=== PATIENT | female | born 1985 | race African-American/Black ===

== ENCOUNTER 2022-07-03 14:19 | Inpatient (IN) | payer BC, OTHER ==
[~2022-07-03 14:19] MED LIST: Bupivacaine 0.25% HCL 30 ML VIAL ONE
[2022-07-03 15:06] VITALS: BMI 45.4
[2022-07-03] MEDS ORDERED: Acetaminophen 500 MG TAB PO PRN (17:15)
[2022-07-03] MEDS ORDERED: NS w/ Oxytocin 30 units 500 ML IV SCH ×2 (17:15→23:59)
[2022-07-03] MEDS ORDERED: Tranexamic Acid 1,000 MG in Sodium Chloride 0.9% 250 ML 250 ML IVPB PRN (17:15)
[2022-07-03] MEDS ORDERED: Ondansetron PF 4 MG/2 ML Vial IVP PRN ×3 (17:15→23:19)
[2022-07-03] MEDS ORDERED: Docusate 100 MG CAP PO PRN (17:15)
[2022-07-03] MEDS ORDERED: Lactated Ringer's 1,000 ML IV SCH (17:15)
[2022-07-03] MEDS ORDERED: Butorphanol Tartrate 1 MG/ML VIAL SLOW IVP PRN (17:15)
[2022-07-03] MEDS ORDERED: Methylergonovine 0.2 MG/ML VIAL IM PRN (17:15)
[2022-07-03] MEDS ORDERED: Carboprost 250 MCG/ML AMP IM PRN (17:15)
[2022-07-03] MEDS ORDERED: hydrALAZINE 20 MG/ML VIAL SLOW IVP PRN ×2 (17:15→23:19)
[2022-07-03] MEDS ORDERED: Diphenoxylate HCl/Atropine Tablet PO PRN (17:15)
[2022-07-03] MEDS ORDERED: Promethazine HCl 25 MG/ML VIAL IM PRN ×2 (17:15→19:47)
[2022-07-03] MEDS ORDERED: Lidocaine 1% (PF) 30 ML VIAL SC PRN (17:20)
[2022-07-03] MEDS ORDERED: Penicillin G Potassium 5 MILL.UNITS VIAL ONE (17:25)
[2022-07-03] MEDS ORDERED: Penicillin G Potassium 5 MILL.UNITS in Sodium Chloride 0.9% 100 ML IVPB SCH (17:30)
[2022-07-03] MEDS ORDERED: Ondansetron PF 4 MG/2 ML Vial ONE (17:57)
[2022-07-03] MEDS ORDERED: Butorphanol Tartrate 1 MG/ML VIAL ONE (17:57)
[2022-07-03] MEDS ORDERED: Penicillin G 2.5 MILL.units 2.5 MILL.UNITS in Premix Bag 1 BAG IVPB SCH (18:00)
[2022-07-03 18:56] LABS: Hemoglobin 10.5 g/dL (12.0-15.5); Mean Corpuscular HGB CONC 31.8 g/dL (32.0-36.0); Mean Corpuscular Hemoglobin 28.2 pg (27.0-33.0); Mean Corpuscular Volume 88.7 fl (81.6-98.3); Mean Platelet Volume 9.4 fl (7.4-10.4); Platelet Count 311 10x3/uL (150-450); RBC Distribution Width 16.4 % (11.5-14.5); Red Blood Cell (RBC) Count 3.72 10x6/uL (3.90-5.03); White Blood Cell (WBC) Count 16.7 10x3/uL (3.5-10.5)
[2022-07-03] MEDS ORDERED: Fentanyl 2 mcg/Bup 0.1% Cadd 100 ML ONE (18:59)
[2022-07-03 19:25] LABS: HBSAg Index 0.25 S/CO (0-0.99); Hep B Surf Ag Non-Reactive S/CO (NonReactive)
[2022-07-03 19:26] LABS: Syphilis Antibody Nonreactive (Nonreactive); Syphilis Antibody Index 0.11 S/CO (<1.00 Non-Reactive)
[2022-07-03] MEDS ORDERED: Moisturizing Cream (Eucerin) 113 GM JAR TOP PRN (19:47)
[2022-07-03] MEDS ORDERED: Lactated Ringer's 500 ML IV PRN (19:47)
[2022-07-03] MEDS ORDERED: Naloxone HCl 0.4 mg/ml Vial IVP PRN ×2 (19:47)
[2022-07-03] MEDS ORDERED: diphenhydrAMINE 50 MG/ML VIAL IVP PRN (19:47)
[2022-07-03] MEDS ORDERED: ePHEDrine Sulfate 50 MG/10 ML VIAL SLOW IVP PRN (19:47)
[2022-07-03] MEDS ORDERED: Acetaminophen 325 MG TAB PO PRN (19:47)
[2022-07-03] MEDS ORDERED: Fentanyl 2 mcg/Bupivacaine 0.1% Cassette 100 ML EPIDURAL SCH (20:00)
[2022-07-03] MEDS ORDERED: Communication Order-Pharmacy FS SCH (20:00)
[2022-07-03] MEDS ORDERED: Preparation H Ointment 28 GM TUBE PR PRN (23:19)
[2022-07-03] MEDS ORDERED: Boostrix 0.5 ML (Tdap) VIAL (>/=7 yrs of age) IM ONE (23:19)
[2022-07-03] MEDS ORDERED: Milk Of Magnesia 30 ML UDCUP PO PRN (23:19)
[2022-07-03] MEDS ORDERED: Misoprostol 200 MCG TAB VAG PRN (23:19)
[2022-07-03] MEDS ORDERED: HYDROcodone/Acetaminophen 5/325 mg Tablet PO PRN (23:19)
[2022-07-03] MEDS ORDERED: diphenhydrAMINE 25 MG CAP PO PRN (23:19)
[2022-07-03] MEDS ORDERED: Benzocaine-Menthol 82.5 ML CAN TOP PRN (23:19)
[2022-07-03] MEDS ORDERED: Zolpidem Tartrate 5 MG TAB PO PRN (23:19)
[2022-07-03] MEDS ORDERED: Bisacodyl 10 MG SUPP PR PRN (23:19)
[2022-07-03] MEDS ORDERED: Lanolin Ointment 7 GM TUBE TOP PRN (23:19)
[2022-07-04] MEDS: HYDROcodone/Acetaminophen 5/325 mg Tablet PO PRN (02:57)
[2022-07-04 04:58] LABS: Hemoglobin 9.8 g/dL (12.0-15.5); Mean Corpuscular HGB CONC 32.6 g/dL (32.0-36.0); Mean Corpuscular Hemoglobin 28.8 pg (27.0-33.0); Mean Corpuscular Volume 88.5 fl (81.6-98.3); Mean Platelet Volume 9.9 fl (7.4-10.4); Platelet Count 315 10x3/uL (150-450); RBC Distribution Width 16.4 % (11.5-14.5); White Blood Cell (WBC) Count 20.5 10x3/uL (3.5-10.5)
[2022-07-04] MEDS: Ibuprofen 800 MG TAB PO SCH ×3 (05:22→21:28)
[2022-07-04] MEDS: Ferrous Sulfate 325 MG TAB PO SCH ×2 (08:09→18:24)
[2022-07-04] MEDS: Prenatal Vitamin 1 TAB PO SCH (08:09)
[2022-07-04] MEDS: Docusate 100 MG CAP PO SCH ×2 (08:09→21:29)
[2022-07-05] MEDS: Ibuprofen 800 MG TAB PO SCH ×2 (05:08→13:57)
[2022-07-05] MEDS: HYDROcodone/Acetaminophen 5/325 mg Tablet PO PRN (05:08)
[2022-07-05] MEDS: Prenatal Vitamin 1 TAB PO SCH (07:57)
[2022-07-05] MEDS: Ferrous Sulfate 325 MG TAB PO SCH (07:57)
[2022-07-05] MEDS: Docusate 100 MG CAP PO SCH (07:57)
[2022-07-05 07:58] VITALS: BP 99/58; TEMP 97.9
== END 2022-07-05 14:35 | disposition home or self-care (01) | DRG 807 ==
LOC: CSHLD/OP 14:19 → CSHLD 17:28 → CSHPP 07-04 01:53
PROVIDERS: ADMIT Obstetrics & Gynecology; ATTEND Obstetrics & Gynecology
PROC: 10D07Z6 Extraction of Products of Conception, Vacuum, Via Natural or Artificial Opening (ICD-10-PCS; principal; 2022-07-03)
DX: O32.8XX0 Maternal care for other malpresentation of fetus, not applicable or unspecified (principal); Z37.0 Single live birth; Z3A.37 37 weeks gestation of pregnancy; O99.824 Streptococcus B carrier state complicating childbirth; O43.893 Other placental disorders, third trimester; O36.5930 Maternal care for other known or suspected poor fetal growth, third trimester, not applicable or unspecified; Z79.899 Other long term (current) drug therapy
CPT/HCPCS: 36415; 51702; 85027; 86780; 86850; 86900; 86901; 87340; 99285; J0595; J2405; J2540; S0020